=== PATIENT | male | born 1965 | race Caucasian/White ===

== ENCOUNTER 2020-11-17 19:16 | Inpatient (IN) | payer OTHER ==
[~2020-11-17] VITALS: Ht 180.3 cm; Wt 163.3 kg
[2020-11-17] MEDS ORDERED: LACTATED RINGERS 1,000 ML IV ONE (19:30)
[2020-11-17 19:44] LABS: BASOPHILS % (AUTO) 0 % (0-10); LYMPHOCYTES % (AUTO) 29 % (12-44)
[2020-11-17 19:46] LABS: EOSINOPHILS % (AUTO) 0 % (0-10); HEMATOCRIT 44 % (40-54); HEMOGLOBIN 14.8 g/dL (13.3-17.7); LYMPHOCYTES # (AUTO) 1.1 10^3/uL (1.0-4.0); MEAN CORPUSCULAR HEMOGLOBIN 30 pg (25-34); MEAN CORPUSCULAR HGB CONC 34 g/dL (32-36); MEAN CORPUSCULAR VOLUME 90 fL (80-99); MEAN PLATELET VOLUME 12.1 fL (9.0-12.2); MONOCYTES # (AUTO) 0.3 10^3/uL (0.0-1.0); MONOCYTES % (AUTO) 9 % (0-12); NEUTROPHILS # (AUTO) 2.2 10^3/uL (1.8-7.8); NEUTROPHILS % (AUTO) 60 % (42-75); PLATELET COUNT 111 10^3/uL (130-400); WHITE BLOOD COUNT 3.7 10^3/uL (4.3-11.0)
[2020-11-17] MEDS ORDERED: dexAMETHasone 6 MG TAB (DECADRON) PO STA (19:49)
[2020-11-17 20:03] LABS: INR 0.9 (0.8-1.4); PROTHROMBIN TIME PATIENT 12.4 SEC (12.2-14.7)
[2020-11-17 20:16] LABS: ALANINE AMINOTRANSFERASE 34 U/L (0-55); ALBUMIN 3.6 GM/DL (3.2-4.5); ALKALINE PHOSPHATASE 41 U/L (40-136); BILIRUBIN,TOTAL 0.6 MG/DL (0.1-1.0); BUN/CREATININE RATIO 9; CALCIUM 8.5 MG/DL (8.5-10.1); CARBON DIOXIDE 30 MMOL/L (21-32); CHLORIDE 95 MMOL/L (98-107); CREATININE SERUM 1.22 MG/DL (0.60-1.30); GFR ESTIMATED > 60; GLUCOSE 91 MG/DL (70-105); POTASSIUM 3.6 MMOL/L (3.6-5.0); SODIUM 134 MMOL/L (135-145); TOTAL PROTEIN 6.8 GM/DL (6.4-8.2)
--- NOTE | 2020-11-17 20:19 | Diagnostic Imaging Report ---
EXAMINATION: Chest 1 view HISTORY: Covid positive. Shortness of breath. COMPARISON: None available. FINDINGS: The lung volumes are normal. Scattered patchy opacities are seen in the mid and lower lungs bilaterally. No large pleural effusion or pneumothorax is seen. The cardiomediastinal silhouette is normal in size and contour. No acute osseous abnormality is seen. IMPRESSION: 1. Scattered patchy opacities in the mid and lower lungs bilaterally, concerning for multifocal pneumonia. Recommend follow-up as indicated. Dictated by: Dictated on workstation # [id number]
--- NOTE | 2020-11-17 20:25 | ED General ---
General Chief Complaint: Respiratory Problems Stated Complaint: COVID + / SOB Nursing Triage Note: Pt arrival to ER with complaint of SOA when coughing. Pt is Covid+ since 11/11/20. Pt has no other complaints. Source of Information: Patient Exam Limitations: No Limitations History of Present Illness Date Seen by Provider: Nov 17, 2020 Time Seen by Provider: 19:02 Initial Comments Here with report of cough and shortness of air. Covid positive since 11/07/2020. is also here who is also positive. He is not vaccinated. Thinks he may have got this at work through contact there. Denies other significant medical problems. Does not smoke but does chew. Does report fever, chills, body aches, weakness, cough and shortness of breath that is exacerbated during cough. Here due to concerns for increasing short of breath. Timing/Duration: Getting Worse, Other (10 days) Severity: Moderate Associated Systoms: Cough, Fever/Chills, Malaise, Shortness of Air, Weakness Allergies and Home Medications Allergies Coded Allergies: No Known Drug Allergies (Unverified , 11/17/20) Patient Home Medication List Home Medication List Reviewed: Yes Review of Systems Review of Systems Constitutional: see HPI EENTM: nose congestion; No throat pain Respiratory: cough, dyspnea on exertion, short of breath Cardiovascular: No edema Gastrointestinal: No nausea, No vomiting Genitourinary: no symptoms reported Musculoskeletal: muscle pain; No muscle weakness Skin: no symptoms reported Psychiatric/Neurological: Headache, Weakness All Other Systems Reviewed Negative Unless Noted: Yes Past Rukjfji-Mxnlcg-Eutqmy Hx Patient Social History Tobacco Use?: Yes Smokeless Tobacco Frequency: Current Everyday User Use of E-Cig and/or Vaping dev: No Substance use?: No Alcohol Use?: No Pt feels they are or have been: No Immunizations Up To Date Influenza Vaccine Up-to-Date: No; Not Current Past Medical History Surgeries: Yes (Teeth) Respiratory: No Cardiac: No Neurological: No Genitourinary: No Gastrointestinal: No Musculoskeletal: No Endocrine: No Family Medical History Reviewed Nursing Family Hx Physical Exam-Suspected Sepsis Physical Exam Vital Signs Vital Signs - First Documented 11/17/20 11/17/20 19:16 19:20 Temp 36.8 Pulse 98 Resp 20 B/P (MAP) 102/66 (78) Pulse Ox 96 O2 Delivery Room Air O2 Flow Rate 2.00 Capillary Refill : Less Than 3 Seconds Blood Pressure Mean: 78 Height, Weight, BMI Height: '" Weight: lbs. oz. kg; 47.00 BMI Method: General Appearance: No Apparent Distress, WD/WN, Obese HEENT: PERRL/EOMI, Pharynx Normal Neck: Non Tender, Supple Respiratory: Crackles (Bibasilar), Expiration, Wheezing (With cough) Cardiovascular: No Murmur, Tachycardia Gastrointestinal: Non Tender, Soft Back: Normal Inspection, No CVA Tenderness, No Vertebral Tenderness Extremity: Normal Range of Motion, Non Tender Neurologic/Psychiatric: Alert, Oriented x3 Skin: normal color, warm/dry Focused Exam Lactate Level 11/17/20 19:25: Lactic Acid Level 1.09 Lactic Acid Level Laboratory Tests Test 11/17/20 19:25 Lactic Acid Level 1.09 MMOL/L (0.50-2.00) Progress/Results/Core Measures Suspected Sepsis SIRS Temperature: Pulse: 98 Respiratory Rate: 20 Laboratory Tests 11/17/20 19:25: White Blood Count 3.7L Blood Pressure 102 /66 Mean: 78 11/17/20 19:25: Lactic Acid Level 1.09 Laboratory Tests 11/17/20 19:25: Creatinine 1.22, INR Comment 0.9, Platelet Count 111L, Total Bilirubin 0.6 Results/Orders Lab Results Laboratory Tests Test 11/17/20 19:25 Range/Units White Blood Count 3.7 L 4.3-11.0 10^3/uL Red Blood Count 4.88 4.30-5.52 10^6/uL Hemoglobin 14.8 13.3-17.7 g/dL Hematocrit 44 40-54 % Mean Corpuscular Volume 90 80-99 fL Mean Corpuscular Hemoglobin 30 25-34 pg Mean Corpuscular Hemoglobin Concent 34 32-36 g/dL Red Cell Distribution Width 12.7 10.0-14.5 % Platelet Count 111 L 130-400 10^3/uL Mean Platelet Volume 12.1 9.0-12.2 fL Immature Granulocyte % (Auto) 1 % Neutrophils (%) (Auto) 60 42-75 % Lymphocytes (%) (Auto) 29 12-44 % Monocytes (%) (Auto) 9 0-12 % Eosinophils (%) (Auto) 0 0-10 % Basophils (%) (Auto) 0 0-10 % Neutrophils # (Auto) 2.2 1.8-7.8 10^3/uL Lymphocytes # (Auto) 1.1 1.0-4.0 10^3/uL Monocytes # (Auto) 0.3 0.0-1.0 10^3/uL Eosinophils # (Auto) 0.0 0.0-0.3 10^3/uL Basophils # (Auto) 0.0 0.0-0.1 10^3/uL Immature Granulocyte # (Auto) 0.0 0.0-0.1 10^3/uL Percent Immature Platelet Fraction 11.6 H 0.0-7.6 % Prothrombin Time 12.4 12.2-14.7 SEC INR Comment 0.9 0.8-1.4 Activated Partial Thromboplast Time 28 24-35 SEC Sodium Level 134 L 135-145 MMOL/L Potassium Level 3.6 3.6-5.0 MMOL/L Chloride Level 95 L 98-107 MMOL/L Carbon Dioxide Level 30 21-32 MMOL/L Anion Gap 9 5-14 MMOL/L Blood Urea Nitrogen 11 7-18 MG/DL Creatinine 1.22 0.60-1.30 MG/DL Estimat Glomerular Filtration Rate > 60 BUN/Creatinine Ratio 9 Glucose Level 91 70-105 MG/DL Lactic Acid Level 1.09 0.50-2.00 MMOL/L Calcium Level 8.5 8.5-10.1 MG/DL Corrected Calcium 8.8 8.5-10.1 MG/DL Total Bilirubin 0.6 0.1-1.0 MG/DL Aspartate Amino Transf (AST/SGOT) 39 H 5-34 U/L Alanine Aminotransferase (ALT/SGPT) 34 0-55 U/L Alkaline Phosphatase 41 40-136 U/L C-Reactive Protein High Sensitivity 2.62 H 0.00-0.50 MG/DL Total Protein 6.8 6.4-8.2 GM/DL Albumin 3.6 3.2-4.5 GM/DL My Orders Orders - ALVARO SALDANA MD Dexamethasone Tablet (Decadron Tablet) (11/17/20 19:49) Fibrin Degradation Products (11/17/20 20:25) Medications Given in ED Current Medications Medications Dose Ordered Sig/Precious Route Start Time Stop Time Status Last Admin Dose Admin Lactated Ringer's 1,000 ml @ 0 mls/hr Q0M ONCE IV 11/17/20 19:30 11/17/20 19:31 DC 11/17/20 19:32 0 MLS/HR Vital Signs/I&O 11/17/20 11/17/20 19:16 19:20 Temp 36.8 Pulse 98 Resp 20 B/P (MAP) 102/66 (78) Pulse Ox 96 93 O2 Delivery Room Air Nasal Cannula O2 Flow Rate 2.00 Capillary Refill : Less Than 3 Seconds Blood Pressure Mean: 78 Progress Note : Progress Note Seen and evaluated. Patient is Covid positive. He does appear to have late sequela of COVID-19 and possible are likely Covid pneumonia. Initial O2 sat for me was 89% on room air. Placed on oxygen. Sepsis work-up initiated. LR 1 L bolus. Albuterol MDI 4 puffs via spacer. This did help. Patient will require admission. Decadron 6 mg p.o. initiated. Monitor patient. 2029: Patient does have findings concerning for COVID-19 viral pneumonia. Does not seem to have bacterial onset at this point. Patient will require admission. 2030: I did discuss the case with Dr. Crook and she accepts patient for admission, inpatient status. Agrees with plan thus far. We will initiate COVID-19 order set. Patient and family agree with plan. Diagnostic Imaging Diagonstic Imaging: Xray Plain Films/CT/US/NM/MRI: chest Comments [facility] [place] NAME: JORDEN ESCUDERO [facility] REC#: [id number] PT STATUS: REG ER : 1965 PHYSICIAN: VIPUL MARTIN HAND STRIPER ADMIT DATE: 11/17/20/ER Draft Date of Exam:11/17/20 CHEST 1 VIEW, AP/PA ONLY EXAMINATION: Chest 1 view HISTORY: Covid positive. Shortness of breath. COMPARISON: None available. FINDINGS: The lung volumes are normal. Scattered patchy opacities are seen in the mid and lower lungs bilaterally. No large pleural effusion or pneumothorax is seen. The cardiomediastinal silhouette is normal in size and contour. No acute osseous abnormality is seen. IMPRESSION: 1. Scattered patchy opacities in the mid and lower lungs bilaterally, concerning for multifocal pneumonia. Recommend follow-up as indicated. Dictated on workstation # [id number] Dict: 11/17/202017 Trans: 11/17/20 2019 [facility] [id number] Interpreted by: NATHAN VILLAVICENCIO DO Electronically signed by: Departure Communication (Admissions) Time/Spoke to Admitting Phy: 20:31 Impression Primary Impression: Pneumonia due to COVID-19 virus Additional Impression: Hypoxia Disposition: 09 ADMITTED INPATIENT Condition: Stable Admissions Decision to Admit Reason: Admit from ER (General) Decision to Admit/Date: Nov 17, 2020 Time/Decision to Admit Time: 20:31 ALVARO SALDANA MD Nov 17, 2020 20:25
[2020-11-17 21:40] LABS: CLARITY,URINE SL CLOUDY; COLOR,URINE AMBER; GLUCOSE, URINE (UA) NEGATIVE (NEGATIVE); KETONES,URINE TRACE (NEGATIVE); LEUKOCYTE ESTERASE ,URINE NEGATIVE (NEGATIVE); NITRITE,URINE NEGATIVE (NEGATIVE); PROTEIN,URINE 1+ (NEGATIVE)
[2020-11-17 21:55] LABS: AMORPHOUS SEDIMENT,UR RARE AMOR URATES /LPF; BACTERIA,URINE TRACE /HPF; BILIRUBIN,URINE 1+ (NEGATIVE); HYALINE CASTS, URINE 0-2 /LPF; RBC,URINE 0-2 /HPF
[2020-11-17] MEDS ORDERED: HYDROcodone/APAP 5 MG/325 MG (LORTAB) TAB PO PRN (22:00)
[2020-11-17] MEDS ORDERED: ACETAMINOPHEN 500 MG TAB (TYLENOL) PO PRN (22:00)
[2020-11-17] MEDS ORDERED: RT-ALBUTEROL INHALER HFA (VENTOLIN HFA) 18 GM IH SCH (22:00)
[2020-11-17] MEDS ORDERED: guaiFENesin/CODEINE (ROBITUSSIN AC) 10ML UDC PO PRN (22:00)
[2020-11-17] MEDS ORDERED: CALCIUM CARBONATE 500 MG (TUMS) TAB.CHEW PO PRN (22:00)
[2020-11-17] MEDS ORDERED: MELATONIN 3 MG TABLET PO PRN (22:00)
[2020-11-17] MEDS ORDERED: diphenhydrAMINE 25 MG TAB (BENADRYL) PO PRN (22:00)
[2020-11-17] MEDS ORDERED: LOPERAMIDE 2 MG (IMODIUM) TABLET PO PRN (22:00)
[2020-11-17] MEDS ORDERED: ALPRAZolam 0.25 MG (XANAX) TAB PO PRN (22:00)
[2020-11-17] MEDS ORDERED: ONDANSETRON 4 MG/2 ML (SDV) Z0FRAN IVP PRN (22:00)
[2020-11-17] MEDS ORDERED: DOCUSATE SODIUM 100 MG (COLACE) CAP PO PRN (22:00)
[2020-11-17 22:24] VITALS: BP 116/73
[2020-11-17] MEDS ORDERED: ACETAMINOPHEN 650 MG SUPP (TYLENOL) PR PRN (22:30)
[2020-11-17] MEDS ORDERED: IPRATROPIUM INHALER (ATROVENT) 12.9 GM INH PRN (22:30)
[2020-11-17] MEDS ORDERED: LACTATED RINGERS 1,000 ML IV SCH (22:30)
[2020-11-17] MEDS ORDERED: RT-ALBUTEROL INHALER HFA (VENTOLIN HFA) 18 GM IH PRN ×2 (22:30→23:15)
[2020-11-17] MEDS ORDERED: ONDANSETRON 4 MG/5 ML ORAL SOLN (ZOFRAN) 5 ML PO PRN (22:30)
[2020-11-17 23:01] VITALS: BP 116/73
[2020-11-17] MEDS: ENOXAPARIN 40 MG/0.4 ML (LOVENOX) SYR SC SCH (23:27)
[2020-11-17 23:49] VITALS: BP 112/74
[2020-11-18] MEDS ORDERED: ALBUTEROL/IPRATROP (COMBIVENT RESPIMAT) 4 GM INHALER INH SCH ×2 (03:00→07:00)
[2020-11-18 04:51] VITALS: BP 125/77
[2020-11-18 07:48] VITALS: BP 129/83
[2020-11-18 08:44] LABS: EOSINOPHILS % (AUTO) 0 % (0-10); LYMPHOCYTES # (AUTO) 0.7 10^3/uL (1.0-4.0); MONOCYTES # (AUTO) 0.2 10^3/uL (0.0-1.0)
[2020-11-18 08:46] LABS: BASOPHILS % (AUTO) 0 % (0-10); HEMATOCRIT 44 % (40-54); HEMOGLOBIN 14.7 g/dL (13.3-17.7); LYMPHOCYTES % (AUTO) 26 % (12-44); MEAN CORPUSCULAR HEMOGLOBIN 30 pg (25-34); MEAN CORPUSCULAR HGB CONC 34 g/dL (32-36); MEAN CORPUSCULAR VOLUME 91 fL (80-99); MEAN PLATELET VOLUME 12.3 fL (9.0-12.2); MONOCYTES % (AUTO) 9 % (0-12); NEUTROPHILS # (AUTO) 1.7 10^3/uL (1.8-7.8); NEUTROPHILS % (AUTO) 64 % (42-75); PLATELET COUNT 110 10^3/uL (130-400); WHITE BLOOD COUNT 2.7 10^3/uL (4.3-11.0)
[2020-11-18 08:54] LABS: ALBUMIN 3.4 GM/DL (3.2-4.5)
[2020-11-18 08:55] LABS: CHLORIDE 98 MMOL/L (98-107); SODIUM 136 MMOL/L (135-145)
[2020-11-18 08:56] LABS: CALCIUM 8.3 MG/DL (8.5-10.1)
[2020-11-18 08:57] LABS: GLUCOSE 118 MG/DL (70-105); TOTAL PROTEIN 6.6 GM/DL (6.4-8.2)
[2020-11-18 08:58] LABS: CARBON DIOXIDE 30 MMOL/L (21-32)
[2020-11-18 08:59] LABS: BILIRUBIN,TOTAL 0.5 MG/DL (0.1-1.0)
[2020-11-18 09:00] LABS: ALKALINE PHOSPHATASE 40 U/L (40-136); CREATININE SERUM 1.02 MG/DL (0.60-1.30); GFR ESTIMATED > 60
[2020-11-18 09:02] LABS: BUN/CREATININE RATIO 10
[2020-11-18 09:03] LABS: ALANINE AMINOTRANSFERASE 30 U/L (0-55)
[2020-11-18] MEDS: polyethylene glycoL POWDER 17 GM (MIRALAX) PACK PO SCH ×2 (09:55→19:57)
[2020-11-18] MEDS: SENNA W/DOCUSATE (SENOKOT S) TABLET PO SCH ×2 (09:56→19:58)
[2020-11-18] MEDS: dexAMETHasone 6 MG TAB (DECADRON) PO SCH (09:57)
[2020-11-18] MEDS: ENOXAPARIN 40 MG/0.4 ML (LOVENOX) SYR SC SCH ×2 (09:58→22:35)
[2020-11-18] MEDS: RT-ALBUTEROL INHALER HFA (VENTOLIN HFA) 18 GM IH SCH ×3 (10:45→21:17)
[2020-11-18 12:12] VITALS: BP 122/76
[2020-11-18 15:49] VITALS: BP 118/73
--- NOTE | 2020-11-18 16:57 | History & Physical-Hospitalist ---
History of Present Illness HPI/Chief Complaint Shadi Sanders is a 55 year old male with no known past medical history who presented with cough and shortness of breath. He tested positive for COVID last week. He has been having symptoms for 10 days. He lost his sense of taste and smell and says "everything tastes like salt". He denies fevers. He has had diarrhea. He denies abdominal pain. He denies nausea and vomiting. He denies chest pain. He denies leg swelling. He did not receive the vaccine. He does not take any medications regularly. Source: patient Exam Limitations: no limitations Date Seen 11/18/20 Time Seen by a Provider: 10:10 Attending Physician Serena Crook DO PCP Referring Physician Date of Admission Nov 17, 2020 at 20:32 Home Medications & Allergies Home Medications Reviewed patient Home Medication Reconciliation performed by pharmacy medication reconciliations cooking appliance repair technician and/or nursing. Patients Allergies have been reviewed. Allergies Allergies Coded Allergies No Known Drug Allergies (Unverified11/17/20) Past Uydnvid-Kuidfb-Zmazir Hx Patient Social History Marrital Status: Tobacco Use?: No Tobacco type used: Cigarettes Smoking Status: Former Smoker Smokeless type used: Chew Smokeless Tobacco Frequency: Current Everyday User Use of E-Cig and/or Vaping dev: No Substance use?: No Alcohol Use?: No Pt feels they are or have been: No Immunizations Up To Date Tetanus Booster (TDap): Less Than 5 Years Current Status Advance Directives: No Communicates: Verbally Primary Language: Albanian Preferred Spoken Language: Albanian Is interpretation needed?: No Implanted or Applied Medical D: None Family Medical History Reviewed Nursing Family Hx No Pertinent Family Hx Review of Systems Constitutional: malaise EENTM: no symptoms reported Respiratory: cough, short of breath Cardiovascular: no symptoms reported Gastrointestinal: diarrhea Genitourinary: no symptoms reported Musculoskeletal: no symptoms reported Skin: no symptoms reported Psychiatric/Neurological: No Symptoms Reported Physical Exam Physical Exam Vital Signs Vital Signs - First Documented 11/17/20 11/17/20 19:16 19:20 Temp 36.8 Pulse 98 Resp 20 B/P (MAP) 102/66 (78) Pulse Ox 96 O2 Delivery Room Air O2 Flow Rate 2.00 Capillary Refill : Less Than 3 Seconds Height, Weight, BMI Height: '" Weight: lbs. oz. kg; 50.23 BMI Method: General Appearance: No Apparent Distress, Obese, Other (appears uncomfortable) HEENT: PERRL/EOMI, Pharynx Normal Neck: Normal Inspection, Supple Respiratory: No Respiratory Distress, Decreased Breath Sounds Cardiovascular: Regular Rate, Rhythm, No Edema, No Murmur Gastrointestinal: Normal Bowel Sounds, Non Tender, Soft Extremity: Normal Inspection, Non Tender, No Pedal Edema Neurologic/Psychiatric: Alert, Oriented x3, No Motor/Sensory Deficits, Normal Mood/Affect Skin: Normal Color, Warm/Dry Results Results/Procedures Labs Laboratory Tests 11/17/20 19:25 11/18/20 08:24 Patient resulted labs reviewed. Imaging: Reviewed Imaging Report Assessment/Plan Admission Diagnosis Acute respiratory failure due to COVID-19 Admission Status: Inpatient Order (span 2 midnights) Reason for Inpatient Admission: Requiring supplemental oxygen Assessment and Plan Acute respiratory failure due to COVID-19 Pneumonia due to COVID-19 Lymphopenia associated with COVID-19 Elevated LFTs Elevated d-dimer Super obesity COVID positive at outside facility Chest xray with patchy opacities D-dimer mildly elevated, monitor LFTs mildly elevated, monitor Started on Decadron Outside window for Remdesivir Convalescent plasma ordered, discussed risks/benefits/EUA status and patient agrees Supplemental oxygen as needed DVT prophylaxis: Lovenox Diagnosis/Problems Diagnosis/Problems (1) Acute respiratory failure due to COVID-19 Status: Acute (2) Pneumonia due to COVID-19 virus Status: Acute (3) Lymphopenia associated with COVID-19 Status: Acute (4) Super obesity Status: Chronic AUGUSTA HEBERT MD Nov 18, 2020 16:57
[2020-11-18 19:11] VITALS: BP 120/69
[2020-11-18 23:30] VITALS: BP 119/78
[2020-11-19] MEDS: RT-ALBUTEROL INHALER HFA (VENTOLIN HFA) 18 GM IH SCH ×4 (03:01→21:53)
[2020-11-19 03:56] VITALS: BP 119/75
[2020-11-19 06:31] LABS: BASOPHILS % (AUTO) 0 % (0-10); EOSINOPHILS % (AUTO) 0 % (0-10); HEMATOCRIT 41 % (40-54); HEMOGLOBIN 13.9 g/dL (13.3-17.7); MEAN CORPUSCULAR HGB CONC 34 g/dL (32-36); MEAN PLATELET VOLUME 12.3 fL (9.0-12.2); PLATELET COUNT 125 10^3/uL (130-400)
[2020-11-19 06:33] LABS: LYMPHOCYTES # (AUTO) 1.1 10^3/uL (1.0-4.0); LYMPHOCYTES % (AUTO) 20 % (12-44); MEAN CORPUSCULAR HEMOGLOBIN 31 pg (25-34); MEAN CORPUSCULAR VOLUME 91 fL (80-99); MONOCYTES # (AUTO) 0.5 10^3/uL (0.0-1.0); MONOCYTES % (AUTO) 8 % (0-12); NEUTROPHILS # (AUTO) 3.9 10^3/uL (1.8-7.8); NEUTROPHILS % (AUTO) 71 % (42-75); WHITE BLOOD COUNT 5.4 10^3/uL (4.3-11.0)
[2020-11-19 06:43] LABS: CHLORIDE 100 MMOL/L (98-107); POTASSIUM 3.7 MMOL/L (3.6-5.0); SODIUM 138 MMOL/L (135-145)
[2020-11-19 06:44] LABS: CALCIUM 8.2 MG/DL (8.5-10.1)
[2020-11-19 06:45] LABS: GLUCOSE 122 MG/DL (70-105)
[2020-11-19 06:46] LABS: CARBON DIOXIDE 26 MMOL/L (21-32)
[2020-11-19 06:49] LABS: CREATININE SERUM 0.86 MG/DL (0.60-1.30); GFR ESTIMATED > 60
[2020-11-19 06:50] LABS: BUN/CREATININE RATIO 14
[2020-11-19 07:55] VITALS: BP 112/60
[2020-11-19] MEDS: dexAMETHasone 6 MG TAB (DECADRON) PO SCH (09:27)
[2020-11-19] MEDS: ENOXAPARIN 40 MG/0.4 ML (LOVENOX) SYR SC SCH ×2 (09:27→21:07)
[2020-11-19] MEDS: polyethylene glycoL POWDER 17 GM (MIRALAX) PACK PO SCH ×2 (09:27→21:08)
[2020-11-19] MEDS: SENNA W/DOCUSATE (SENOKOT S) TABLET PO SCH ×2 (09:27→21:07)
[2020-11-19 12:00] VITALS: BP 97/66
--- NOTE | 2020-11-19 12:48 | Progress Note - Hospitalist ---
Subjective HPI/CC On Admission Date Seen by Provider: Nov 19, 2020 Time Seen by Provider: 10:45 Shadi Sanders is a 55 year old male with no known past medical history who presented with cough and shortness of breath. He tested positive for COVID last week. He has been having symptoms for 10 days. He lost his sense of taste and smell and says "everything tastes like salt". He denies fevers. He has had diarrhea. He denies abdominal pain. He denies nausea and vomiting. He denies chest pain. He denies leg swelling. He did not receive the vaccine. He does not take any medications regularly. Subjective/Events-last exam He is feeling a little bit better. He is still short of breath. He still has a cough. He has been eating and drinking more. He has been up and moving back and forth to the bathroom. Focused Exam Lactate Level 11/17/20 19:25: Lactic Acid Level 1.09 Objective Exam Vital Signs Vital Signs Date Time Temp Pulse Resp B/P (MAP) Pulse Ox O2 Delivery O2 Flow Rate FiO2 11/19/20 08:00 Nasal Cannula 4.00 11/19/20 07:55 36.2 84 20 112/60 (77) 97 Capillary Refill : Less Than 3 Seconds General Appearance: No Apparent Distress, Obese Respiratory: Lungs Clear, Normal Breath Sounds, No Respiratory Distress Cardiovascular: Regular Rate, Rhythm, No Edema, No Murmur Gastrointestinal: Normal Bowel Sounds, Non Tender, Soft Extremity: Normal Inspection, Non Tender, No Pedal Edema Neurologic/Psychiatric: Alert, Oriented x3, No Motor/Sensory Deficits, Normal Mood/Affect Skin: Normal Color, Warm/Dry Results/Procedures Lab Laboratory Tests 11/19/20 06:00 Patient resulted labs reviewed. Imaging: Reviewed Imaging Report Assessment/Plan Assessment and Plan Assess & Plan/Chief Complaint Acute respiratory failure due to COVID-19 Pneumonia due to COVID-19 Lymphopenia associated with COVID-19 Elevated LFTs Elevated d-dimer Super obesity COVID positive at outside facility Chest xray with patchy opacities D-dimer mildly elevated, monitor LFTs mildly elevated, monitor Continue Decadron Outside window for Remdesivir Awaiting convalescent plasma Supplemental oxygen as needed, stable DVT prophylaxis: Lovenox Diagnosis/Problems Diagnosis/Problems (1) Acute respiratory failure due to COVID-19 Status: Acute (2) Pneumonia due to COVID-19 virus Status: Acute (3) Lymphopenia associated with COVID-19 Status: Acute (4) Super obesity Status: Chronic AUGUSTA HEBERT MD Nov 19, 2020 12:48
[2020-11-19 15:41] VITALS: BP 126/61
[2020-11-19 19:26] VITALS: BP 117/58
[2020-11-20] VITALS (7 sets, daily range): BP systolic 105–158; BP diastolic 66–98
[2020-11-20] MEDS: RT-ALBUTEROL INHALER HFA (VENTOLIN HFA) 18 GM IH SCH ×4 (02:12→20:59)
[2020-11-20 08:41] LABS: BASOPHILS % (AUTO) 0 % (0-10); EOSINOPHILS % (AUTO) 0 % (0-10); HEMATOCRIT 43 % (40-54); HEMOGLOBIN 14.1 g/dL (13.3-17.7); LYMPHOCYTES # (AUTO) 1.5 10^3/uL (1.0-4.0); LYMPHOCYTES % (AUTO) 30 % (12-44); MEAN CORPUSCULAR HEMOGLOBIN 30 pg (25-34); MEAN CORPUSCULAR HGB CONC 33 g/dL (32-36); MEAN CORPUSCULAR VOLUME 92 fL (80-99); MONOCYTES # (AUTO) 0.5 10^3/uL (0.0-1.0); MONOCYTES % (AUTO) 10 % (0-12); NEUTROPHILS % (AUTO) 60 % (42-75); PLATELET COUNT 149 10^3/uL (130-400)
[2020-11-20 09:01] LABS: BUN/CREATININE RATIO 14; CALCIUM 8.6 MG/DL (8.5-10.1); CARBON DIOXIDE 29 MMOL/L (21-32); CHLORIDE 100 MMOL/L (98-107); CREATININE SERUM 0.86 MG/DL (0.60-1.30); GFR ESTIMATED > 60; GLUCOSE 91 MG/DL (70-105); POTASSIUM 3.6 MMOL/L (3.6-5.0); SODIUM 137 MMOL/L (135-145)
[2020-11-20] MEDS: SENNA W/DOCUSATE (SENOKOT S) TABLET PO SCH ×2 (09:27→21:07)
[2020-11-20] MEDS: dexAMETHasone 6 MG TAB (DECADRON) PO SCH (09:27)
[2020-11-20] MEDS: ENOXAPARIN 40 MG/0.4 ML (LOVENOX) SYR SC SCH ×2 (09:27→21:07)
[2020-11-20] MEDS: polyethylene glycoL POWDER 17 GM (MIRALAX) PACK PO SCH ×2 (09:27→21:07)
--- NOTE | 2020-11-20 09:28 | Pulmonary Consultation ---
History of Present Illness History of Present Illness Date Seen by Provider: Nov 20, 2020 Time Seen by Provider: 09:25 Reason for Visit: covid -19 pneumonia History of Present Illness He is a middle-aged male with a past medical history of morbid obesity who has not received a Covid vaccine this year or last year presented with a complaint of that he was tested positive at work and also had a cough exacerbated. Apparently himself and his attended a wedding about 1015 days prior to this admission lateral he was asymptomatic but tested positive at work letter after that he became symptomatic and presented to the emergency room he is concerned about his breathing as he is short of breath and dry cough. Currently has no fever but he reported fever earlier he had a chills and body aches and weakness. No rash or swelling of feet or diarrhea. I have made a video visit and discussed with the patient as well as the bedside RN. He agreed for the video visit Allergies and Home Medications Allergies Coded Allergies: No Known Drug Allergies (Unverified , 11/17/20) Home Medications No Active Prescriptions or Reported Meds Past Medical/Social/Family Hx Patient Social History Marrital Status: Tobacco Use?: No Tobacco type used: Cigarettes Smoking Status: Former Smoker Smokeless type used: Chew Smokeless Tobacco Frequency: Current Everyday User Use of E-Cig and/or Vaping dev: No Substance use?: No Alcohol Use?: No Pt stated abuse/neglect: No Immunizations Up To Date Influenza Vaccine Up-to-Date: No; Not Current Tetanus Booster (TDap): Less Than 5 Years Current Status Advance Directives: No Communicates: Verbally Primary Language: Spanish Preferred Spoken Language: Spanish Is interpretation needed?: No Implanted or Applied Medical D: None Review of Systems Constitutional: see HPI, fever, malaise, weakness Respiratory: see HPI, cough, dyspnea on exertion, short of breath Sepsis Event Evaluation Height, Weight, BMI Height: '" Weight: lbs. oz. kg; 50.23 BMI Method: Exam Exam Patient acknowledged, consented, and participated in this virtual visit which was conducted using real time audio/video Vital Signs Date Time Temp Pulse Resp B/P (MAP) Pulse Ox O2 Delivery O2 Flow Rate FiO2 11/20/20 07:04 95 Nasal Cannula 3.00 11/20/20 04:00 35.4 68 20 120/72 (88) 97 Nasal Cannula 3.00 11/20/20 02:13 97 7.00 11/20/20 00:28 36.3 73 20 121/67 (85) 97 Nasal Cannula 4.00 11/19/20 21:59 91 High Flow N/C 7.00 11/19/20 21:53 95 Nasal Cannula 3.00 11/19/20 19:26 36.5 79 20 117/58 (77) 96 Nasal Cannula 4.00 11/19/20 19:00 91 High Flow N/C 3.00 11/19/20 15:41 36.4 77 20 126/61 (82) 96 Nasal Cannula 4.00 11/19/20 15:36 94 5.00 11/19/20 15:22 97 Nasal Cannula 4.00 11/19/20 13:48 16 92 Nasal Cannula 4.00 11/19/20 12:00 36.6 75 20 97/66 (76) 98 Nasal Cannula 4.00 I & O 11/20/20 07:00 Intake Total 2480 ml Balance 2480 ml Height & Weight Height: '" Weight: lbs. oz. kg; 50.23 BMI Method: General Appearance: No Apparent Distress, Obese HEENT: PERRL/EOMI, Pharynx Normal Neck: Normal Inspection, Supple Respiratory: Lungs Clear, Normal Breath Sounds, No Respiratory Distress Cardiovascular: Regular Rate, Rhythm, No Edema, No Murmur Capillary Refill: Less Than 3 Seconds Extremity: Normal Inspection, Non Tender, No Pedal Edema Neurologic/Psychiatric: Alert, Oriented x3, No Motor/Sensory Deficits, Normal Mood/Affect Skin: Normal Color, Warm/Dry Results Lab Laboratory Tests 11/19/20 06:00 11/20/20 08:35 Meds Reviewed Radiology cxr reviewed by me via PACS Assessment/Plan Assessment/Plan 1. Acute hypoxic respiratory failure requiring supplemental oxygen 2. Covid19 virus pneumonia 3. Morbid obesity 4. Lymphopenia associated with COVID-19 infection 5. Elevated liver enzymes due to Covid infection Recommendations 1. We will give him supplemental oxygen #2 DVT prophylaxis and ulcer prophylaxis 3. Monitor WBC count and D-dimer 4. Monitor LFTs 5. Continue Decadron. 6. He is outside the window for remdesivir 7. Convalescent plasma has been ordered and awaiting to arrival. 8. Advised to get Covid vaccine in 90 days post recovery and lose weight to optimal weight. 8. I have discussed with the patient at bedside RN in detail Thank you for this consultation. Time spent with patient (mins): 50 Diagnosis/Problems Problems/Diagonsis (1) Hypoxia Status: Acute (2) Super obesity Status: Chronic (3) Pneumonia due to COVID-19 virus Status: Acute (4) Acute respiratory failure due to COVID-19 Status: Acute (5) Lymphopenia associated with COVID-19 Status: Acute BRITTANY MANZANO MD Nov 20, 2020 09:28
--- NOTE | 2020-11-20 14:53 | Progress Note - Hospitalist ---
Subjective HPI/CC On Admission Date Seen by Provider: Nov 20, 2020 Time Seen by Provider: 11:05 Shadi Sanders is a 55 year old male with no known past medical history who presented with cough and shortness of breath. He tested positive for COVID last week. He has been having symptoms for 10 days. He lost his sense of taste and smell and says "everything tastes like salt". He denies fevers. He has had diarrhea. He denies abdominal pain. He denies nausea and vomiting. He denies chest pain. He denies leg swelling. He did not receive the vaccine. He does not take any medications regularly. Subjective/Events-last exam He is feeling better today. He is sitting up in a chair. He is still feeling a bit short of breath. He still has a cough. He has been eating and drinking more. He has been up and moving around. Focused Exam Lactate Level 11/17/20 19:25: Lactic Acid Level 1.09 Objective Exam Vital Signs Vital Signs Date Time Temp Pulse Resp B/P (MAP) Pulse Ox O2 Delivery O2 Flow Rate FiO2 11/20/20 14:02 95 Nasal Cannula 3.00 11/20/20 12:00 36.0 78 22 158/98 (118) Capillary Refill : Less Than 3 Seconds General Appearance: No Apparent Distress, Obese Respiratory: Lungs Clear, Normal Breath Sounds, No Respiratory Distress Cardiovascular: Regular Rate, Rhythm, No Edema, No Murmur Gastrointestinal: Normal Bowel Sounds, Non Tender, Soft Extremity: Normal Inspection, Non Tender, No Pedal Edema Neurologic/Psychiatric: Alert, Oriented x3, No Motor/Sensory Deficits, Normal Mood/Affect Skin: Normal Color, Warm/Dry Results/Procedures Lab Laboratory Tests 11/20/20 08:35 Patient resulted labs reviewed. Imaging: Reviewed Imaging Report Assessment/Plan Assessment and Plan Assess & Plan/Chief Complaint Acute respiratory failure due to COVID-19 Pneumonia due to COVID-19 Lymphopenia associated with COVID-19 Elevated LFTs Elevated d-dimer Super obesity COVID positive at outside facility Chest xray with patchy opacities Continue Decadron Outside window for Remdesivir Deferring convalescent plasma as now stabilized Supplemental oxygen as needed, stable DVT prophylaxis: Lovenox Diagnosis/Problems Diagnosis/Problems (1) Acute respiratory failure due to COVID-19 Status: Acute (2) Pneumonia due to COVID-19 virus Status: Acute (3) Lymphopenia associated with COVID-19 Status: Acute (4) Super obesity Status: Chronic AUGUSTA HEBERT MD Nov 20, 2020 14:53
[2020-11-21] MEDS: RT-ALBUTEROL INHALER HFA (VENTOLIN HFA) 18 GM IH SCH ×2 (03:20→09:58)
[2020-11-21 04:20] VITALS: BP 123/84
[2020-11-21 08:00] VITALS: BP 122/72
[2020-11-21] MEDS: dexAMETHasone 6 MG TAB (DECADRON) PO SCH (11:35)
[2020-11-21] MEDS: polyethylene glycoL POWDER 17 GM (MIRALAX) PACK PO SCH (11:35)
[2020-11-21] MEDS: ENOXAPARIN 40 MG/0.4 ML (LOVENOX) SYR SC SCH (11:35)
[2020-11-21] MEDS: SENNA W/DOCUSATE (SENOKOT S) TABLET PO SCH (11:35)
[2020-11-21 12:00] VITALS: BP 122/57
--- NOTE | 2020-11-21 13:12 | Discharge Summary ---
Discharge Summary Hospital Course Problems/Dx: (1) Acute respiratory failure due to COVID-19 Status: Acute (2) Pneumonia due to COVID-19 virus Status: Acute (3) Lymphopenia associated with COVID-19 Status: Acute (4) Super obesity Status: Chronic Hospital Course Date of Admission: Nov 17, 2020 at 20:32 Admission Diagnosis : Family Physician/Provider: Date of Discharge: 11/21/20 Discharge Diagnosis: [ ] Hospital Course: [ ] Labs and Pending Lab Test: Microbiology 11/17/20 Urine Culture - Final, Complete Gram Pos Mixed Bacterial Adriana 11/17/20 Blood Culture - Preliminary, Resulted Staph, Coag Neg ([employer]) Home Meds Active No Active Prescriptions or Reported Medications Assessment/Pt Instructions Follow-up with your primary care physician. You do not need to stay in isolation after you return home. You may return to work. Return with worsening shortness of breath, chest pain, or if you feel like you are getting worse. I recommend getting the Covid vaccine in a few months. Discharge Planning: <30 minutes discharge planning Discharge Instructions Discharge Diet: No Restrictions Activity as Tolerated: Yes Discharge Physical Examination Vital Signs Vital Signs Date Time Temp Pulse Resp B/P (MAP) Pulse Ox O2 Delivery O2 Flow Rate FiO2 11/21/20 12:57 91 95 11/21/20 12:00 36.0 20 122/57 (78) Room Air 11/21/20 09:58 2.00 General Appearance: No Apparent Distress, Obese Respiratory: Lungs Clear, Normal Breath Sounds, No Respiratory Distress Cardiovascular: Regular Rate, Rhythm, No Edema, No Murmur Gastrointestinal: Normal Bowel Sounds, Non Tender, Soft Extremity: Normal Inspection, Non Tender, No Pedal Edema Skin: Normal Color, Warm/Dry Neurologic/Psychiatric: Alert, Oriented x3, No Motor/Sensory Deficits, Normal Mood/Affect Allergies: Coded Allergies: No Known Drug Allergies (Unverified , 11/17/20) Discharge Summary Date of Admission Nov 17, 2020 at 20:32 Date of Discharge Discharge Date: Nov 21, 2020 Discharge Time: 13:12 Admission Diagnosis Acute respiratory failure due to COVID-19 Discharge Diagnosis Acute respiratory failure due to COVID-19 Pneumonia due to COVID-19 (1) Acute respiratory failure due to COVID-19 Status: Acute (2) Pneumonia due to COVID-19 virus Status: Acute (3) Lymphopenia associated with COVID-19 Status: Acute (4) Super obesity Status: Chronic AUGUSTA HEBERT MD Nov 21, 2020 13:12
[2020-11-21 14:00] VITALS: BP 122/57
== END 2020-11-21 14:00 | disposition home or self-care (01) | DRG 177 ==
LOC: ER 19:18 → 4TH 20:32
PROVIDERS: ADMIT Internal Medicine; ATTEND Internal Medicine
DX: U07.1 COVID-19 (principal); J12.82 Pneumonia due to coronavirus disease 2019; J96.01 Acute respiratory failure with hypoxia; Z68.43 Body mass index [BMI] 50.0-59.9, adult; D72.810 Lymphocytopenia; E66.01 Morbid (severe) obesity due to excess calories; Z73.0 Burn-out; Z87.891 Personal history of nicotine dependence
CPT/HCPCS: 36415; 71045; 80048; 80053; 81000; 83605; 84145; 85025; 85379; 85610; 85730; 86141; 86900; 86901; 87040; 87088; 94640; 94664; 94760; 94761